=== PATIENT | male | born 1935 | race Hispanic/Latino ===

== ENCOUNTER 2019-10-12 08:30 | Day surgery (SDC) | payer OTHER ==
[2019-09-29 14:45] VITALS: BP 109/69
[2019-09-29 15:05] LABS: EOSINOPHILS % (AUTO) 3.7 % (0.0-8.0); HEMATOCRIT 44.3 % (42-54); LYMPHOCYTES % (AUTO) 21.8 % (21.0-51.0); MEAN CORPUSCULAR HEMOGLOBIN 31.6 pg (27.0-33.0); MEAN CORPUSCULAR HGB CONC 32.1 g/dL (32.0-36.0); MEAN CORPUSCULAR VOLUME 98.7 fL (79-99); MONOCYTES % (AUTO) 10.2 % (3.0-13.0); PLATELET COUNT (AUTO) 228 K/uL (130-400); RED BLOOD CELL COUNT(AUTO) 4.49 MIL/uL (4.50-6.20); RED CELL DISTRIBUTION WIDTH 13.4 % (11.0-15.5); WHITE BLOOD COUNT (AUTO) 6.2 K/uL (4.8-10.8)
[2019-09-29 15:13] LABS: POTASSIUM 3.9 mmol/L (3.5-5.1)
--- NOTE | 2019-09-29 15:43 | NUR ---
SPOKE TO ANGELA ALVARADO FROM DR. العلي OFFICE, REGARDING XARELTO. PER DR. العلي OFFICE AND ANGELA RHOADES. SHOULD NOT TAKE XARELTO OF TODAY 09-29-19.
--- NOTE | 2019-09-29 16:20 | NUR ---
EKG EKG REPORTED TO DR. SOTO. NO FURTHER ORDERS, MAY PROCEED WITH PLANNED PROCEDURE.
[~2019-10-12] VITALS: Ht 171.4 cm; Wt 58.8 kg
[2019-10-12] VITALS (17 sets, daily range): BP systolic 149–166; BP diastolic 69–95
[~2019-10-12 08:30] MED LIST: LACTATED RINGERS 1000ML 1,000 ML IV SCH; METO25TA6 PO; RIVA15TA PO; TAMS-1 PO; VITA1CAP17 PO
[2019-10-12] MEDS ORDERED: LACTATED RINGERS 1000ML 1,000 ML IV ONE (08:40)
--- NOTE | 2019-10-12 09:38 | NUR ---
POTENTIAL FOR INFECTION: SHAVED RIGHT SIDED ABDOMEN AND INGUINAL AREA.
[2019-10-12] MEDS ORDERED: LIDOCAINE HCL MPF 1% 5ML VIAL ONE (11:05)
[2019-10-12] MEDS ORDERED: FENTANYL CITRATE PF 50 MCG/1 ML 2ML VIAL ONE (11:05)
[2019-10-12] MEDS ORDERED: PROPOFOL 10 MG/ML 20ML VIAL IV ONE (11:05)
[2019-10-12] MEDS ORDERED: ROPIVACAINE 0.5% 5MG/ML 30ML IJ ONE (11:46)
[2019-10-12] MEDS ORDERED: EPHEDRINE SULFATE 50 MG/ML AMPULE ONE (12:29)
== END 2019-10-12 14:55 | disposition home or self-care (01) ==
LOC: DAH 08:30
PROVIDERS: ATTEND Surgery
DX: K40.90 Unilateral inguinal hernia, without obstruction or gangrene, not specified as recurrent (principal); I48.91 Unspecified atrial fibrillation; I45.10 Unspecified right bundle-branch block; Z87.891 Personal history of nicotine dependence; Z85.46 Personal history of malignant neoplasm of prostate; Z98.890 Other specified postprocedural states; Z91.048 Other nonmedicinal substance allergy status
CPT/HCPCS: 36415; 49505; 64486; 80048; 85025; 88302; 93005; A4215; A4221; A4222; A4223; A4450; A4452; A4663; A4930; A6260; C1781; J2704; J2795; J3010; J3490 ×2; J7120 ×2

== ENCOUNTER → 2020-01-09 | Outpatient (CLI) | payer OTHER ==
[~2020-01-09] MED LIST changes: -LACTATED RINGERS 1000ML 1,000 ML IV SCH; -RIVA15TA PO
== END | disposition home or self-care (01) ==
LOC: RAH 11:07
PROVIDERS: ATTEND Urology
DX: N28.1 Cyst of kidney, acquired (principal); R31.29 Other microscopic hematuria
CPT/HCPCS: 76770

== ENCOUNTER → 2020-04-15 | Outpatient (CLI) | payer OTHER | END | disposition home or self-care (01) | LOC: RAH 10:31 | PROVIDERS: ATTEND Urology | DX: N28.89 Other specified disorders of kidney and ureter (principal); N20.0 Calculus of kidney; M47.815 Spondylosis without myelopathy or radiculopathy, thoracolumbar region | CPT/HCPCS: 74018; 76100 ==

== ENCOUNTER → 2020-04-22 | Outpatient (CLI) | payer OTHER | END | disposition home or self-care (01) | LOC: RAH 11:08 | PROVIDERS: ATTEND Urology | DX: N20.0 Calculus of kidney (principal); N28.1 Cyst of kidney, acquired; K57.90 Diverticulosis of intestine, part unspecified, without perforation or abscess without bleeding; I70.0 Atherosclerosis of aorta; N42.9 Disorder of prostate, unspecified ==

== ENCOUNTER → 2020-05-03 | Outpatient (CLI) | payer OTHER | END | disposition home or self-care (01) | LOC: RAH 10:21 | PROVIDERS: ATTEND Internal Medicine | DX: M19.071 Primary osteoarthritis, right ankle and foot (principal); M25.774 Osteophyte, right foot; M76.61 Achilles tendinitis, right leg | CPT/HCPCS: 73620 ==

== ENCOUNTER → 2020-05-06 | Outpatient (CLI) | payer OTHER | END | disposition home or self-care (01) | LOC: RAH 10:00 | PROVIDERS: ATTEND Internal Medicine | DX: M76.61 Achilles tendinitis, right leg (principal); M81.0 Age-related osteoporosis without current pathological fracture | CPT/HCPCS: 73610 ==

== ENCOUNTER → 2021-02-04 | Outpatient (CLI) | payer OTHER | END | disposition home or self-care (01) | LOC: RAH 12:04 | PROVIDERS: ATTEND Urology | DX: N20.0 Calculus of kidney (principal); I70.0 Atherosclerosis of aorta; M85.88 Other specified disorders of bone density and structure, other site | CPT/HCPCS: 74018; 76100 ==

== ENCOUNTER → 2021-08-06 | Outpatient (CLI) | payer OTHER | END | disposition home or self-care (01) | LOC: RAH 10:02 | PROVIDERS: ATTEND Urology | DX: C61 Malignant neoplasm of prostate (principal); K59.00 Constipation, unspecified | CPT/HCPCS: 74018; 76100 ==

== ENCOUNTER → 2024-02-29 | Outpatient (CLI) | payer OTHER | END | disposition home or self-care (01) | LOC: RAH 07:56 | PROVIDERS: ATTEND Urology | DX: N28.1 Cyst of kidney, acquired (principal); N20.0 Calculus of kidney | CPT/HCPCS: 76770; 76775 ==